=== PATIENT | female | born 2000 | race Caucasian/White ===

== ENCOUNTER 2021-01-18 05:02 | Emergency (ER) | payer BC ==
[2021-01-18] MEDS: Ketorolac 30 MG/ML SDV IVPUSH ONE (06:03)
[2021-01-18] MEDS: Acetaminophen 1,000 MG in Premix Bag 1 BAG IV ONE (06:03)
[2021-01-18] MEDS: Ondansetron 4 MG/2 ML SDV IVPUSH ONE (06:03)
--- NOTE | 2021-01-18 06:10 | EDM.PDOC ---
ED HPI GENERAL MEDICAL PROBLEM - General Chief Complaint: Back Pain or Injury Stated Complaint: BACK AND ABDOMINAL PAIN Time Seen by Provider: 01/18/21 05:40 Source of Information: Reports: Patient History Limitations: Reports: No Limitations - History of Present Illness INITIAL COMMENTS - FREE TEXT/NARRATIVE: c/o RLQ pain x 5d works in long-term Mon to Fri, off work last 2d, was very busy 2d ago (Sat) for her mother's bday, was in bed yesterday with inc'd RLQ pain, had N, did drink "a lot of water", not much appetite did not know she had fever pain was in her R lower back, inc'd with activity altho she kept her usual schedule until yesterday yesterday pain radiated to LLQ has daily BM at 4p "when I get home from work", last BM 2d ago, soft, no h/o constipation or diarrhea sexually activity, had an IUD removed previously that came through wall of uterus had nasal septoplasty 1m ago for deviated septum, had been on nasal sprays previously, none since PSH: septoplasty meds: Zoloft, MVI no dysuria, no vag d/c Bilateral Lower Back Pain Score (Numeric/FACES): 6 - Related Data Allergies Allergy/AdvReac Type Severity Reaction Status Date / Time No Known Allergies Allergy Verified 01/18/21 05:34 Home Meds: Home Meds Multivitamin 1 tab PO DAILY 01/18/21 [History] Sertraline [Zoloft] 100 mg PO DAILY 01/18/21 [History] levoFLOXacin [Levaquin] 750 mg PO DAILY #7 tab 01/18/21 [Rx] Past Medical History - Past Health History Medical/Surgical History: Denies Medical/Surgical History Psychiatric History: Reports: Depression Social & Family History - Tobacco Use Tobacco Use Status *Q: Never Tobacco User - Caffeine Use Caffeine Use: Reports: None - Recreational Drug Use Recreational Drug Use: No - Living Situation & Occupation Living situation: Reports: with Family ED ROS GENERAL - Review of Systems Review Of Systems: See Below Constitutional: Reports: Fatigue, Decreased Appetite HEENT: Reports: No Symptoms Respiratory: Reports: No Symptoms Cardiovascular: Reports: No Symptoms Endocrine: Reports: No Symptoms GI/Abdominal: Reports: Abdominal Pain, Nausea. Denies: Constipation, Diarrhea, Vomiting : Reports: No Symptoms Musculoskeletal: Reports: No Symptoms Skin: Reports: No Symptoms Neurological: Reports: No Symptoms Psychiatric: Reports: No Symptoms Hematologic/Lymphatic: Reports: No Symptoms Immunologic: Reports: No Symptoms ED EXAM, GI/ABD - Physical Exam Exam: See Below Exam Limited By: No Limitations General Appearance: Alert, WD/WN, No Apparent Distress Ears: Hearing Grossly Normal Throat/Mouth: Normal Voice, No Airway Compromise Head: Atraumatic, Normocephalic Neck: Normal Inspection, Supple, Non-Tender, Full Range of Motion. No: Lymphadenopathy (R), Lymphadenopathy (L) Respiratory/Chest: No Respiratory Distress, Lungs Clear, Normal Breath Sounds, Chest Non-Tender Cardiovascular: No Edema, Tachycardia, Other (regular, quiet precordium, 2/6 MINA at LSB) GI/Abdominal Exam: Soft, Other (inc'd tender across lower quadrants, more so on the right where tender to mild palpation, some guard at RLQ, no definite rebound, CVAT on R) Back Exam: Normal Inspection, Full Range of Motion, Other (walks without difficulty, moves easily, mild CVAT b/l) Extremities: Normal Inspection, Normal Range of Motion, Non-Tender, No Pedal Edema, Other (SLR to 90 degrees at RLE, normal external rotation, Julio/psoas signs neg) Neurological: Alert, Oriented, CN II-XII Intact, Normal Cognition, No Motor/Se nsory Deficits Psychiatric: Normal Affect, Normal Mood Skin Exam: Warm, Dry, Intact, Normal Color, No Rash Lymphatic: No Adenopathy Course - Vital Signs Last Recorded V/S: Last Vital Signs Temp 37.3 C 01/18/21 08:00 Pulse 102 H 01/18/21 08:00 Resp 18 01/18/21 08:00 BP 102/49 L 01/18/21 08:00 Pulse Ox 96 01/18/21 08:00 - Orders/Labs/Meds Orders: Active Orders 24 hr Category Date Time Status Abdomen Pelvis w Cont [CT] Stat Exams 01/18/21 06:03 Taken CULTURE BLOOD [BC] Urgent Lab 01/18/21 05:53 Received CULTURE BLOOD [BC] Urgent Lab 01/18/21 05:53 Received CULTURE URINE [RM] Stat Lab 01/18/21 06:10 Received Sodium Chloride 0.9% [Normal Saline] 1,000 ml Med 01/18/21 07:55 Ordered IV .BOLUS Blood Culture x2 Reflex Set [OM.PC] Urgent Oth 01/18/21 05:47 Ordered Medication Orders Sodium Chloride (Normal Saline) 1,000 mls @ 999 mls/hr IV .BOLUS ONE Stop: 01/18/21 08:55 Last Admin: 01/18/21 08:05 Dose: 999 mls/hr Documented by: ERICK Labs: Laboratory Tests 01/18/21 01/18/21 01/18/21 Range/Units 05:45 05:45 05:45 WBC 12.1 H (3.0-10.3) x10-3/uL RBC 4.02 (3.60-5.20) x10(6)uL Hgb 12.2 (11.4-15.5) g/dL Hct 37.0 (34.2-48.2) % MCV 92.0 (76.7-100.5) fL MCH 30.3 (23.9-33.9) pg MCHC 32.9 (31.9-34.8) g/dL RDW 12.5 (12.3-16.5) % Plt Count 263 (151-488) x10(3)uL MPV 7.6 (7.1-12.4) fL Add Manual Diff Yes Neutrophils % (Manual) 82 (46-82) % Band Neutrophils % 8 H (0-6) % Lymphocytes % (Manual) 9 L (13-37) % Monocytes % (Manual) 1 L (4-12) % Toxic Granulation Moderate H (NOT SEEN) Sodium 139 (135-145) mmol/L Potassium 3.6 (3.5-5.3) mmol/L Chloride 102 (100-110) mmol/L Carbon Dioxide 24 (21-32) mmol/L BUN 12 (7-18) mg/dL Creatinine 1.1 H (0.55-1.02) mg/dL Est Cr Clr Drug Dosing TNP Estimated GFR (MDRD) > 60 (>60) BUN/Creatinine Ratio 10.9 (9-20) Glucose 106 (80-116) mg/dL Calcium 8.7 (8.6-10.2) mg/dL Total Bilirubin 0.8 (0.1-1.3) mg/dL AST 13 (5-25) IU/L ALT 23 (12-36) U/L Alkaline Phosphatase 91 (56-112) IU/L C-Reactive Protein (0.5-0.9) mg/dL Total Protein 7.5 (6.0-8.0) g/dL Albumin 3.9 (3.5-5.2) g/dL Globulin 3.6 g/dL Albumin/Globulin Ratio 1.1 Lipase 41 L (73-393) U/L Urine Color (YELLOW) Urine Appearance (CLEAR) Urine pH (5.0-6.5) Ur Specific [place] (1.010-1.025) Urine Protein (NEGATIVE) mg/dL Urine Glucose (UA) (NORMAL) mg/dL Urine Ketones (NEGATIVE) mg/dL Urine Occult Blood (NEGATIVE) Urine Nitrite (NEGATIVE) Urine Bilirubin (NEGATIVE) Urine Urobilinogen (NEGATIVE) mg/dL Ur Leukocyte Esterase (NEGATIVE) Urine RBC (0-5) Urine WBC (0-5) Ur Squamous Epith Cells (NS,R,O) Urine Bacteria (NS) Urine Mucus (NS) Urine HCG, Qual (NEGATIVE) 01/18/21 01/18/21 01/18/21 Range/Units 05:53 06:10 06:10 WBC (3.0-10.3) x10-3/uL RBC (3.60-5.20) x10(6)uL Hgb (11.4-15.5) g/dL Hct (34.2-48.2) % MCV (76.7-100.5) fL MCH (23.9-33.9) pg MCHC (31.9-34.8) g/dL RDW (12.3-16.5) % Plt Count (151-488) x10(3)uL MPV (7.1-12.4) fL Add Manual Diff Neutrophils % (Manual) (46-82) % Band Neutrophils % (0-6) % Lymphocytes % (Manual) (13-37) % Monocytes % (Manual) (4-12) % Toxic Granulation (NOT SEEN) Sodium (135-145) mmol/L Potassium (3.5-5.3) mmol/L Chloride (100-110) mmol/L Carbon Dioxide (21-32) mmol/L BUN (7-18) mg/dL Creatinine (0.55-1.02) mg/dL Est Cr Clr Drug Dosing Estimated GFR (MDRD) (>60) BUN/Creatinine Ratio (9-20) Glucose (80-116) mg/dL Calcium (8.6-10.2) mg/dL Total Bilirubin (0.1-1.3) mg/dL AST (5-25) IU/L ALT (12-36) U/L Alkaline Phosphatase (56-112) IU/L C-Reactive Protein 10.7 H* (0.5-0.9) mg/dL Total Protein (6.0-8.0) g/dL Albumin (3.5-5.2) g/dL Globulin g/dL Albumin/Globulin Ratio Lipase (73-393) U/L Urine Color Yellow (YELLOW) Urine Appearance Cloudy (CLEAR) Urine pH 5.0 (5.0-6.5) Ur Specific [place] 1.010 (1.010-1.025) Urine Protein 30 H (NEGATIVE) mg/dL Urine Glucose (UA) Normal (NORMAL) mg/dL Urine Ketones Negative (NEGATIVE) mg/dL Urine Occult Blood Moderate H (NEGATIVE) Urine Nitrite Negative (NEGATIVE) Urine Bilirubin Negative (NEGATIVE) Urine Urobilinogen 1 H (NEGATIVE) mg/dL Ur Leukocyte Esterase Large H (NEGATIVE) Urine RBC 10-20 H (0-5) Urine WBC 50-75 H (0-5) Ur Squamous Epith Cells Many H (NS,R,O) Urine Bacteria Moderate H (NS) Urine Mucus Few H (NS) Urine HCG, Qual Negative (NEGATIVE) Meds: Medications Generic Name Dose Route Start Last Admin Trade Name Freq PRN Reason Stop Dose Admin Sodium Chloride 1,000 mls @ 999 mls/hr 01/18/21 07:55 01/18/21 08:05 Normal Saline IV 01/18/21 08:55 999 mls/hr .BOLUS ONE Administration Discontinued Medications Generic Name Dose Route Start Last Admin Trade Name Freq PRN Reason Stop Dose Admin Ceftriaxone Sodium 1 gm 01/18/21 07:15 01/18/21 07:47 Rocephin IVPUSH 01/18/21 07:16 1 gm ONETIME ONE Administration Acetaminophen 1,000 mg/ Premix 100 mls @ 400 mls/hr 01/18/21 05:33 01/18/21 06:03 IV 01/18/21 05:47 400 mls/hr NOW ONE Administration Sodium Chloride 1,000 mls @ 999 mls/hr 01/18/21 05:34 01/18/21 06:27 Normal Saline IV 01/18/21 06:34 999 mls/hr .BOLUS ONE Administration Iopamidol 100 ml 01/18/21 06:44 01/18/21 07:03 Isovue-370 (76%) IV 01/18/21 06:45 100 ml . DIRECTED ONE Administration Ketorolac Tromethamine 30 mg 01/18/21 05:33 01/18/21 06:03 Toradol IVPUSH 01/18/21 05:34 30 mg ONETIME ONE Administration Ondansetron HCl 4 mg 01/18/21 05:33 01/18/21 06:03 Zofran IVPUSH 01/18/21 05:34 4 mg ONETIME ONE Administration - Re-Assessments/Exams Free Text/Narrative Re-Assessment/Exam: 01/18/21 08:26 CT abd/pelvis with IV contrast shows R pyelo pt reports h/o UTIs in past, however did have freq or dysuria, pt cautioned that she should have a u/a checked if she gets lower abd pain in future as she likely had a UTI (as evidenced by RLQ pain 5d ago) that progressed to a R pyelo appendix wnl on CT pt states her mother has Crohn's, however there is no evidence of Crohn's ds by hx or labs or CT pt lives alone, however her mother lives nearby pain down to 3/10, feeling much better Departure - Departure Time of Disposition: 08:28 Disposition: Home, Self-Care 01 Condition: Good Clinical Impression: Pyelonephritis of right kidney - Discharge Information *PRESCRIPTION DRUG MONITORING PROGRAM REVIEWED*: Not Applicable *COPY OF PRESCRIPTION DRUG MONITORING REPORT IN PATIENT CALEB: Not Applicable Prescriptions: levoFLOXacin [Levaquin] 750 mg PO DAILY #7 tab Referrals: Emma Loredo PA-C [Primary Care Provider] - Forms: ED Department Discharge, ED Return to Work/School Form Additional Instructions: No work today or tomorrow. Rest. Maintain fluids. For infection, take levofloxacin 750 mg 1 tab daily for 7 days. For pain and inflammation, take ibuprofen 200 mg 3 tabs and acetaminophen 500 mg 2 tabs (or 325 mg 3 tabs) 4 times a day (meals and bedtime) for 2 days. See your doctor in 2 days for further recommendations. Call or return to Emergency Department if you are feeling worse. Sepsis Event Note (ED) - Evaluation Sepsis Screening Result: Possible Sepsis Risk - Focused Exam Vital Signs: Vital Signs Temp Pulse Resp BP Pulse Ox 01/18/21 08:00 37.3 C 102 H 18 102/49 L 96 01/18/21 06:45 37.5 C 105 H 98 01/18/21 05:23 39.0 C H 131 H 18 113/54 L 97 - My Orders Last 24 Hours: My Active Orders 01/18/21 05:47 Blood Culture x2 Reflex Set [OM.PC] Urgent 01/18/21 05:53 CULTURE BLOOD [BC] Urgent CULTURE BLOOD [BC] Urgent 01/18/21 06:03 Abdomen Pelvis w Cont [CT] Stat 01/18/21 06:10 CULTURE URINE [RM] Stat 01/18/21 07:55 Sodium Chloride 0.9% [Normal Saline] 1,000 ml IV .BOLUS - Assessment/Plan Last 24 Hours: My Active Orders 01/18/21 05:47 Blood Culture x2 Reflex Set [OM.PC] Urgent 01/18/21 05:53 CULTURE BLOOD [BC] Urgent CULTURE BLOOD [BC] Urgent 01/18/21 06:03 Abdomen Pelvis w Cont [CT] Stat 01/18/21 06:10 CULTURE URINE [RM] Stat 01/18/21 07:55 Sodium Chloride 0.9% [Normal Saline] 1,000 ml IV .BOLUS
[2021-01-18] MEDS: Sodium Chloride 0.9% 1,000 ML IV ONE ×2 (06:27→08:05)
[2021-01-18] MEDS: Iopamidol 755 Mg/ML 100 ML Bottle IV ONE (07:03)
[2021-01-18] MEDS: cefTRIAXone 1 GM Vial IVPUSH ONE (07:47)
== END 2021-01-18 09:20 | disposition home or self-care (01) ==
LOC: FB.ED 05:02
DX: N12 Tubulo-interstitial nephritis, not specified as acute or chronic (principal); Z79.899 Other long term (current) drug therapy
CPT/HCPCS: 36415; 74177; 80053; 81001; 81025; 83690; 85025; 86140; 87040; 87086; 87088; 87186; 96365; 96375; 99284; 99284-25; J0131; J0696; J1885; J2405; J7030; Q9967

== ENCOUNTER 2021-06-27 17:13 | Emergency (ER) | payer OTHER, BC ==
[2021-06-27] MEDS: Sodium Chloride 0.9% 10 ML Syringe FLUSH PRN ×4 (17:15→18:25)
[2021-06-27] MEDS ORDERED: Ondansetron 4 MG/2 ML SDV IVPUSH ONE (17:17)
[2021-06-27] MEDS ORDERED: HYDROmorphone 2 MG/ML SDV IVPUSH ONE ×3 (17:17→18:20)
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
[2021-06-27] MEDS ORDERED: Diphtheria,Pertussis(Acell),Tetanus Vaccine 0.5 ML Syringe IM ONE (17:37)
== END 2021-06-27 18:40 ==
LOC: FB.ED 17:13
DX: S52.291A Other fracture of shaft of right ulna, initial encounter for closed fracture (principal); S52.391A Other fracture of shaft of radius, right arm, initial encounter for closed fracture; Z23 Encounter for immunization; V86.69XA Passenger of other special all-terrain or other off-road motor vehicle injured in nontraffic accident, initial encounter; Y92.410 Unspecified street and highway as the place of occurrence of the external cause
CPT/HCPCS: 29105; 71045; 72170; 73090; 90471; 90715; 96374; 96375; 96376; 99285; J1170; J2405

== ENCOUNTER 2023-11-27 07:40 | Day surgery (SDC) | payer BC ==
[2023-11-27] MEDS ORDERED: fentaNYL 100 MCG/2 ML SDV IV ONE (07:41)
[2023-11-27] MEDS ORDERED: Midazolam 1 MG/ML 2 ML SDV IV ONE (07:41)
[2023-11-27] MEDS ORDERED: Propofol 200 MG/20 ML SDV IV ONE (07:41)
[2023-11-27] MEDS ORDERED: Sodium Chloride 0.9% 10 ML Syringe FLUSH PRN (07:45)
[2023-11-27] MEDS ORDERED: Lactated Ringers 1,000 ML IV SCH (07:45)
[2023-11-27] MEDS ORDERED: Simethicone Drops 40 MG/0.6 ML 30 ML Bottle PO ONE (08:52)
[2023-12-02 01:21] LABS: LACTOFERRIN,FECAL BY ELISA Negative
== END 2023-11-27 10:11 | disposition home or self-care (01) ==
LOC: FB.SDS 07:40
PROVIDERS: ATTEND Surgery
DX: R19.5 Other fecal abnormalities (principal); Z79.899 Other long term (current) drug therapy; Z88.5 Allergy status to narcotic agent
CPT/HCPCS: 00811; 45380; 81025; 83630; 88305; A9270; J2250; J2704; J3010; J7120; 87507